=== PATIENT | female | born 1980 | race Caucasian/White ===

== ENCOUNTER 2018-11-20 17:30 | Observation (INO) | payer OTHER ==
[~2018-11-20] VITALS: Ht 152.4 cm; Wt 78.0 kg
[~2018-11-20 17:30] MED LIST: MONT10T PO; Norco 5-325 Ta1 EACH PO; SERT100; TOPI100 PO; TRAM50 PO; Zofran Odt4 MG SL; [UNRECOGNIZED DRUG - OTHER]
[2018-11-20] MEDS ORDERED: Prilosec Otc20 MG (17:59)
[2018-11-20] MEDS ORDERED: IRON150C (17:59)
[2018-11-20] MEDS ORDERED: SIME80CH (18:00)
[2018-11-20] MEDS ORDERED: FAMO20 (18:00)
[2018-11-20] MEDS ORDERED: Alavert D-12 A1 EACH (18:01)
== END 2018-11-21 13:58 | disposition short-term general hospital (02) ==
LOC: OBS 17:30 → BC 17:30 → OBS 17:42 → BC 17:43
PROVIDERS: Nurse Practitioner Obstetrics & Gynecology; ADMIT Obstetrics & Gynecology
DX: O60.02 Preterm labor without delivery, second trimester (principal); O99.342 Other mental disorders complicating pregnancy, second trimester; F41.1 Generalized anxiety disorder; F32.9 Major depressive disorder, single episode, unspecified; O99.512 Diseases of the respiratory system complicating pregnancy, second trimester; J45.909 Unspecified asthma, uncomplicated; O99.352 Diseases of the nervous system complicating pregnancy, second trimester; G40.909 Epilepsy, unspecified, not intractable, without status epilepticus; Z87.442 Personal history of urinary calculi; Z88.5 Allergy status to narcotic agent; Z88.8 Allergy status to other drugs, medicaments and biological substances; Z91.013 Allergy to seafood; Z79.899 Other long term (current) drug therapy; Z3A.23 23 weeks gestation of pregnancy
CPT/HCPCS: 76817; 82731; J0702; J3105; J7120

== ENCOUNTER 2020-05-19 09:06 | Inpatient (IN) | payer OTHER ==
[~2020-05-19] VITALS: Ht 149.9 cm; Wt 80.4 kg
[~2020-05-19 09:06] MED LIST changes: +Alavert D-12 A1 EACH; +FAMO20 PO; +IRON150C; +Prilosec Otc20 MG; +SIME80CH
[2020-05-19] MEDS ORDERED: AMIT10 PO (09:39)
[2020-05-20 04:27] LABS: BASOPHILS ABSOLUTE AUTO 0.03 K/mm3 (0.00-0.23); BASOPHILS PERCENT AUTO 0 % (0-2); EOSINOPHILS PERCENT AUTO 0 % (0-6); Hematocrit 31.9 % (33.0-51.0); Hemoglobin 10.1 g/dL (11.5-16.0); IMMATURE GRAN ABSOLUTE AUTO 0.07 K/mm3 (0.00-0.10); IMMATURE GRAN PERCENT AUTO 1 % (0-1); LYMPHOCYTES ABSOLUTE AUTO 2.11 K/mm3 (0.84-5.20); LYMPHOCYTES PERCENT AUTO 15 % (21-46); MONOCYTES ABSOLUTE AUTO 1.13 K/mm3 (0.16-1.47); MONOCYTES PERCENT AUTO 8 % (4-13); Mean Corpuscular HGB Conc 31.7 g/dL (31.5-36.5); Mean Corpuscular Volume 92 fL (80-100); Mean Platelet Volume 8.6 fL (9.1-12.4); NEUTROPHILS ABSOLUTE AUTO 11.23 K/mm3 (1.96-9.15); NEUTROPHILS PERCENT AUTO 77 % (41-73); Platelet Count 236 K/mm3 (150-400); RDW Coefficient Variation 12.8 % (11.7-14.2); RDW Standard Deviation 42.5 fL (35.1-46.3); Red Blood Cell Count 3.48 M/mm3 (3.80-5.20); White Blood Cell Count 14.57 K/mm3 (4.00-11.30)
[2020-05-21 12:08] LABS: BASOPHILS ABSOLUTE AUTO 0.04 K/mm3 (0.00-0.23); BASOPHILS PERCENT AUTO 0 % (0-2); EOSINOPHILS ABSOLUTE AUTO 0.21 K/mm3 (0.00-0.68); EOSINOPHILS PERCENT AUTO 2 % (0-6); Hematocrit 30.8 % (33.0-51.0); Hemoglobin 9.8 g/dL (11.5-16.0); IMMATURE GRAN ABSOLUTE AUTO 0.07 K/mm3 (0.00-0.10); IMMATURE GRAN PERCENT AUTO 1 % (0-1); LYMPHOCYTES PERCENT AUTO 32 % (21-46); MONOCYTES ABSOLUTE AUTO 1.08 K/mm3 (0.16-1.47); MONOCYTES PERCENT AUTO 10 % (4-13); Mean Corpuscular HGB 29.4 pg (26.0-34.0); Mean Corpuscular HGB Conc 31.8 g/dL (31.5-36.5); Mean Corpuscular Volume 93 fL (80-100); Mean Platelet Volume 8.5 fL (9.1-12.4); NEUTROPHILS ABSOLUTE AUTO 5.74 K/mm3 (1.96-9.15); NEUTROPHILS PERCENT AUTO 55 % (41-73); Platelet Count 233 K/mm3 (150-400); RDW Coefficient Variation 12.8 % (11.7-14.2); RDW Standard Deviation 43.7 fL (35.1-46.3); Red Blood Cell Count 3.33 M/mm3 (3.80-5.20); White Blood Cell Count 10.44 K/mm3 (4.00-11.30)
[2020-05-22] MEDS ORDERED: ESTR2 PO (13:43)
[2020-05-22] MEDS ORDERED: ONDA4 PO (13:44)
[2020-05-22] MEDS ORDERED: Percocet 5-3251 EACH PO (13:45)
[2020-05-22] MEDS ORDERED: SIME80CH PO (13:45)
== END 2020-05-22 15:07 | disposition home or self-care (01) | DRG 742 ==
LOC: ORSCMMR 09:06 → SURS 17:38
PROVIDERS: Surgery; ADMIT Obstetrics & Gynecology
PROC: 0DQ84ZZ Repair Small Intestine, Percutaneous Endoscopic Approach (ICD-10-PCS; 2020-05-19)
PROC: 0DNU4ZZ Release Omentum, Percutaneous Endoscopic Approach (ICD-10-PCS; 2020-05-19)
PROC: 0UT90ZZ Resection of Uterus, Open Approach (ICD-10-PCS; principal; 2020-05-19 11:00)
PROC: 0UT20ZZ Resection of Bilateral Ovaries, Open Approach (ICD-10-PCS; 2020-05-19 11:00)
PROC: 0UT70ZZ Resection of Bilateral Fallopian Tubes, Open Approach (ICD-10-PCS; 2020-05-19 11:00)
DX: N80.9 Endometriosis, unspecified (principal); K91.72 Accidental puncture and laceration of a digestive system organ or structure during other procedure; N94.6 Dysmenorrhea, unspecified; R10.2 Pelvic and perineal pain; N94.12 Deep dyspareunia; N73.6 Female pelvic peritoneal adhesions (postinfective)
CPT/HCPCS: 36415; 80048; 84702; 85025; 88307; 93005; 93010; 94762; A9270; J0690; J1100; J1170; J1650; J2250; J2370; J2405; J2704; J2710; J2765; J3010; J7120

== ENCOUNTER → 2023-07-23 | Outpatient (CLI) | payer OTHER ==
[~2023-07-23] MED LIST changes: +AMIT10 PO; +ESTR2 PO; +ONDA4 PO; +Percocet 5-3251 EACH PO; +SIME80CH PO
[2023-07-23 19:41] LABS: BASOPHILS ABSOLUTE AUTO 0.07 K/mm3 (0.00-0.23); BASOPHILS PERCENT AUTO 1 % (0-2); EOSINOPHILS ABSOLUTE AUTO 0.71 K/mm3 (0.00-0.68); EOSINOPHILS PERCENT AUTO 6 % (0-6); Hematocrit 47.8 % (33.0-51.0); Hemoglobin 15.8 g/dL (11.5-16.0); IMMATURE GRAN ABSOLUTE AUTO 0.09 K/mm3 (0.00-0.10); IMMATURE GRAN PERCENT AUTO 1 % (0-1); LYMPHOCYTES ABSOLUTE AUTO 4.79 K/mm3 (0.84-5.20); LYMPHOCYTES PERCENT AUTO 37 % (21-46); MONOCYTES ABSOLUTE AUTO 1.09 K/mm3 (0.16-1.47); MONOCYTES PERCENT AUTO 9 % (4-13); Mean Corpuscular HGB 30.3 pg (26.0-34.0); Mean Corpuscular HGB Conc 33.1 g/dL (31.5-36.5); Mean Corpuscular Volume 92 fL (80-100); NEUTROPHILS ABSOLUTE AUTO 6.09 K/mm3 (1.96-9.15); NEUTROPHILS PERCENT AUTO 48 % (41-73); Platelet Count 359 K/mm3 (150-400); RDW Coefficient Variation 13.2 % (11.7-14.2); RDW Standard Deviation 44.2 fL (35.1-46.3); Red Blood Cell Count 5.22 M/mm3 (3.80-5.20); White Blood Cell Count 12.84 K/mm3 (4.00-11.30)
[2023-07-23 20:02] LABS: Ferritin, Serum 156 ng/mL (8-252); Iron Serum 101 ug/dL (50-170); Total Iron Binding Capacity 335 ug/dL (250-450)
[2023-07-23 20:03] LABS: CHOL/HDL RATIO 4.2; Cholesterol 122 mg/dL (50-200); HDL Cholesterol 29 mg/dL (>39); LDL/HDL RATIO 2.1; Low Density Lipoprotein Chol 61 mg/dL (0-110); Percent Saturation 30.1 % (15.0-50.0); Triglycerides 158 mg/dL (30-160); Very Low Density Lipoprot Chol 31 mg/dL (6-32)
[2023-07-25 08:14] LABS: A/G RATIO 1.4 (1.2-2.2); BILIRUBIN, TOTAL 0.3 mg/dL (0.0-1.2); CALCIUM, SERUM 9.3 mg/dL (8.7-10.2); CREATININE, SERUM 0.68 mg/dL (0.57-1.00); GLOBULIN, TOTAL 2.9 g/dL (1.5-4.5); POTASSIUM, SERUM 3.8 mmol/L (3.5-5.2)
== END | disposition home or self-care (01) ==
LOC: LAB 17:13 → LAB SHORT 17:13
PROVIDERS: Family Medicine
DX: Z13.1 Encounter for screening for diabetes mellitus (principal); Z13.6 Encounter for screening for cardiovascular disorders; I10 Essential (primary) hypertension; R00.0 Tachycardia, unspecified; R00.2 Palpitations
CPT/HCPCS: 80053; 80061; 82728; 83036; 83540; 83550; 84443; 85025

== ENCOUNTER → 2025-05-18 | Outpatient (CLI) | payer OTHER | END | disposition home or self-care (01) | LOC: LAB 09:58 → LAB SHORT 09:58 | DX: R31.9 Hematuria, unspecified (principal) | CPT/HCPCS: 87086 ==